=== PATIENT | female | born 1995 | race Caucasian/White ===

== ENCOUNTER 2017-03-04 10:50 | Emergency (ER) | payer BC ==
[2017-03-04 10:59] VITALS: O2SAT 97
--- NOTE | 2017-03-04 11:40 | EDPHY ---
H & P Time Seen by Provider: 03/04/17 11:04 HPI/ROS: CHIEF COMPLAINT: Abdominal pain HISTORY OF PRESENT ILLNESS: 22-year-old female presents to the emergency department complaining of right-sided abdominal pain that began and to mild degree last night and then worse this morning. She states that it woke up out of her sleep. She went to the [facility] today and they sent her to the emergency department for evaluation. She feels that the pain is more in her right lower abdomen. She feels nauseous although no vomiting. No diarrhea. No urinary symptoms. Denies . REVIEW OF SYSTEMS: Constitutional: No fever, no chills. Eyes: No double or blurry vision. ENT: No sore throat. Respiratory: No cough, no shortness of breath. Cardiac: No chest pain. Gastrointestinal: Abdominal pain as above. No vomiting or diarrhea. Genitourinary: No dysuria. Musculoskeletal: No neck or back pain. Skin: No rashes. Neurological: No headache. Past Medical/Surgical History: "Stomach issues " Social History: Single Smoking Status: Never smoked Physical Exam: General Appearance: Alert, no distress. Afebrile. Eyes: Pupils equal and round. Extraocular motions are all intact. ENT: Mouth: Mucous membranes moist. Respiratory: No wheezing, rhonchi, or rales, lungs are clear to auscultation. Cardiovascular: Regular rate and rhythm. Gastrointestinal: Abdomen is soft. Tenderness with palpation especially the right lower quadrant. No rebound, guarding or masses noted. No CVA tenderness bilaterally. Neurological: Alert and oriented x 3, cranial nerves II through XII grossly intact Skin: Warm and dry, no rashes. Musculoskeletal: Nontender to palpate along the cervical, thoracic or lumbar spine. Neck is supple. Extremities: Full range of motion and no peripheral edema. Psychiatric: Patient is oriented X 3, there is no agitation. Constitutional: Initial Vital Signs Temperature (C) 36.7 C 03/04/17 10:56 Heart Rate 77 03/04/17 10:56 Respiratory Rate 16 03/04/17 10:56 Blood Pressure 108/67 03/04/17 10:56 O2 Sat (%) 97 03/04/17 10:56 O2 Delivery Mode Room Air Allergies/Adverse Reactions: SHRIMP Allergy (Uncoded 03/04/17 11:00) Home Medications: Medication Instructions Recorded Bcp 03/04/17 Wellbutrin 03/04/17 Medical Decision Making - Diagnostics Imaging Results: Imaging Impressions Abdomen Ultrasound 03/04/17 11:38 Impression: Appendix cannot be visualized. Findings discussed with Emergency Department physician's residential assistant, Danyelle Lin, at 1259 hours March 04, 2017. Pelvic/Renal Ultrasound 03/04/17 11:38 Impression: 1. Normal ovaries. No torsion or cyst. 2. Normal uterus. 3. Trace free fluid. Findings discussed with Emergency Department physician's residential assistant, Danyelle Lin, at 1302 hours 03/04/2017. Abdomen CT 03/04/17 13:02 Impression: No CT findings for appendicitis. Moderate constipation. Otherwise normal CT of the abdomen and pelvis with IV contrast. Results called and discussed with Danyelle Lin at 1439 hours 11/06/2016. This was also reviewed by Dr. Carmelo Davison who concurs. Imaging: Discussed imaging studies w/ director call center sales Radiologist ED Course/Re-evaluation: 22-year-old female presents to the emergency department with right lower quadrant abdominal pain. I was concerned about possible acute appendicitis[place] [id number]. Urinalysis unremarkable. Patient is not . Pelvic ultrasound was unremarkable. Abdominal ultrasound does not reveal the appendix. Serial exams were performed. The patient continued to have ongoing right lower quadrant abdominal pain. I recommended CT imaging of the abdomen and pelvis to further evaluate for possible acute appendicitis. Discussed the pros and cons including radiation exposure and the patient agrees. CT scan reveals normal appendix. Patient was given IV normal saline since she was given contrast dye for the CT scan. She was also given 15 mg of IV Toradol for her pain. She felt comfortable being discharged home. Patient was instructed to return to the emergency department in 8-12 hours if she continued to have ongoing pain or sooner if she felt worse in any way. She was also given primary care referral. Differential Diagnosis: Including but not limited to ovarian cyst, ovarian torsion, acute appendicitis, urinary tract infection, pyelonephritis, kidney stone - Data Points Laboratory Results: Laboratory Results 03/04/17 11:19 03/04/17 11:19 03/04/17 03/04/17 03/04/17 12:39 11:19 11:19 WBC RBC Hgb Hct MCV MCH MCHC RDW Plt Count MPV Neut % (Auto) Lymph % (Auto) [place] % (Auto) Eos % (Auto) Baso % (Auto) Nucleat RBC Rel Count Absolute Neuts (auto) Absolute Lymphs (auto) Absolute Monos (auto) Absolute Eos (auto) Absolute Basos (auto) Absolute Nucleated RBC Immature Gran % Immature Gran # Sodium 140 mEq/L mEq/L (134-144) Potassium 4.6 mEq/L mEq/L (3.5-5.2) Chloride 103 mEq/L mEq/L (97-110) Carbon Dioxide 23 mEq/l mEq/l (22-31) Anion Gap 14 mEq/L mEq/L (8-16) BUN 13 mg/dL mg/dL (7-23) Creatinine 0.7 mg/dL mg/dL (0.6-1.0) Estimated GFR > 60 Glucose 88 mg/dL mg/dL (70-100) Calcium 9.9 mg/dL mg/dL (8.5-10.4) Beta HCG, Qual NEGATIVE Urine Color PALE YELLOW Urine Appearance CLEAR Urine pH 5.0 (5.0-7.5) Ur Specific [place] 1.008 (1.002-1.030) Urine Protein NEGATIVE (NEGATIVE) Urine Ketones 1+ H (NEGATIVE) Urine Blood NEGATIVE (NEGATIVE) Urine Nitrate NEGATIVE (NEGATIVE) Urine Bilirubin NEGATIVE (NEGATIVE) Urine Urobilinogen NEGATIVE EU EU (0.2-1.0) Ur Leukocyte Esterase NEGATIVE (NEGATIVE) Urine RBC 1-3 /hpf /hpf (0-3) Urine WBC 1-3 /hpf /hpf (0-3) Ur Epithelial Cells TRACE /lpf /lpf (NONE-1+) Urine Mucus TRACE /lpf /lpf (NONE-1+) Urine Glucose NEGATIVE (NEGATIVE) 03/04/17 11:19 WBC 12.15 10^3/uL H 10^3/uL (3.80-9.50) RBC 5.09 10^6/uL 10^6/uL (4.18-5.33) Hgb 14.9 g/dL g/dL (12.6-16.3) Hct 43.9 % % (38.0-47.0) MCV 86.2 fL fL (81.5-99.8) MCH 29.3 pg pg (27.9-34.1) MCHC 33.9 g/dL g/dL (32.4-36.7) RDW 12.3 % % (11.5-15.2) Plt Count 226 10^3/uL 10^3/uL (150-400) MPV 11.4 fL fL (8.7-11.7) Neut % (Auto) 83.0 % H % (39.3-74.2) Lymph % (Auto) 12.7 % L % (15.0-45.0) [place] % (Auto) 3.6 % L % (4.5-13.0) Eos % (Auto) 0.2 % L % (0.6-7.6) Baso % (Auto) 0.2 % L % (0.3-1.7) Nucleat RBC Rel Count 0.0 % % (0.0-0.2) Absolute Neuts (auto) 10.09 10^3/uL H 10^3/uL (1.70-6.50) Absolute Lymphs (auto) 1.54 10^3/uL 10^3/uL (1.00-3.00) Absolute Monos (auto) 0.44 10^3/uL 10^3/uL (0.30-0.80) Absolute Eos (auto) 0.02 10^3/uL L 10^3/uL (0.03-0.40) Absolute Basos (auto) 0.02 10^3/uL 10^3/uL (0.02-0.10) Absolute Nucleated RBC 0.00 10^3/uL 10^3/uL (0-0.01) Immature Gran % 0.3 % % (0.0-1.1) Immature Gran # 0.04 10^3/uL 10^3/uL (0.00-0.10) Sodium Potassium Chloride Carbon Dioxide Anion Gap BUN Creatinine Estimated GFR Glucose Calcium Beta HCG, Qual Urine Color Urine Appearance Urine pH Ur Specific [place] Urine Protein Urine Ketones Urine Blood Urine Nitrate Urine Bilirubin Urine Urobilinogen Ur Leukocyte Esterase Urine RBC Urine WBC Ur Epithelial Cells Urine Mucus Urine Glucose Medications Given: Discontinued Medications Ketorolac Tromethamine (Toradol) 15 mg IVP EDNOW ONE Stop: 03/04/17 14:40 Last Admin: 03/04/17 14:57 Dose: 15 mg Departure - Departure Disposition: Home, Routine, Self-Care Clinical Impression: Abdominal pain Qualifiers: Abdominal location: right lower quadrant Qualified Code(s): R10.31 - Right lower quadrant pain Condition: Good Instructions: Acute Abdominal Pain (ED) Additional Instructions: Abdominal Pain: Return to the Emergency Department immediately for increasing pain, fever, vomiting, or if not completely better in 8-12 hours. Clear liquids and slowly advance diet as tolerated. Referrals: Trini Liz DO [Doctor of Osteopathy] - 2-3 days, if not improved (Primary care provider development consultant)
[2017-03-04 11:45] LABS: % IMMATURE GRANULYOCYTES 0.3 % (0.0-1.1); ABSOLUTE IMMATURE GRANULOCYTES 0.04 10^3/uL (0.00-0.10); ADD DIFF? NO; ADD MORPH? NO; ADD SCAN? NO; ATYPICAL LYMPHOCYTE FLAG 0 (0-99); FRAGMENT RBC FLAG 0 (0-99); HEMATOCRIT 43.9 % (38.0-47.0); HEMOGLOBIN 14.9 g/dL (12.6-16.3); LEFT SHIFT FLG 0 (0-99); LIPEMIA HEMOLYSIS FLAG 90 (0-99); MEAN CELL HEMOGLOBIN 29.3 pg (27.9-34.1); MEAN CELL HEMOGLOBIN CONCENTR. 33.9 g/dL (32.4-36.7); MEAN CELL VOLUME 86.2 fL (81.5-99.8); MEAN PLATELET VOLUME 11.4 fL (8.7-11.7); PLATELET CLUMPS FLAG 0 (0-99); PLATELET COUNT 226 10^3/uL (150-400); RED BLOOD CELL COUNT 5.09 10^6/uL (4.18-5.33); RED CELL DISTRIBUTION WIDTH 12.3 % (11.5-15.2)
[2017-03-04 12:04] LABS: ANION GAP 14 mEq/L (8-16); CALCIUM 9.9 mg/dL (8.5-10.4); CARBON DIOXIDE 23 mEq/l (22-31); CHLORIDE 103 mEq/L (97-110); CREATININE 0.7 mg/dL (0.6-1.0); GLOMERULAR FILTRATION RATE > 60; GLUCOSE 88 mg/dL (70-100); POTASSIUM 4.6 mEq/L (3.5-5.2); SODIUM 140 mEq/L (134-144)
[2017-03-04 13:03] LABS: COLOR PALE YELLOW; LEUKOCYTE ESTERASE,URINE NEGATIVE (NEGATIVE); NITRITE,URINE NEGATIVE (NEGATIVE)
[2017-03-04 13:04] LABS: MUCUS TRACE /lpf (NONE-1+)
[2017-03-04] MEDS ORDERED: IOPAMIDOL (ISOVUE-300) 100 ML BTL ONE (13:54)
[2017-03-04] MEDS ORDERED: KETOROLAC 30 MG/1 ML SDV IVP ONE (14:39)
[2017-03-04 15:53] VITALS: BP 110/81; PULSE 86; RESP 14; TEMP 98.6
== END 2017-03-04 15:52 | disposition home or self-care (01) ==
DX: R10.31 Right lower quadrant pain (principal)
CPT/HCPCS: 96374; J1885; Q9967